=== PATIENT | male | born 1980 | race Caucasian/White ===

== ENCOUNTER → 2017-09-10 | Day surgery (SDC) | payer BC ==
[~2017-09-10] VITALS: Ht 176.5 cm; Wt 92.6 kg
[~2017-09-10] MED LIST: FERR27TA5; MULT-1027; PYRI1TAB30
[2017-09-10 08:22] VITALS: BP 133/80; PULSE 62; TEMP 36.7; O2SAT 94; Ht 176.5 cm; Wt 92.6 kg
[2017-09-10 11:49] VITALS: BP 122/80; PULSE 54; TEMP 36.8; O2SAT 99
--- NOTE | 2017-09-11 15:23 | OPERATIVE REPORT ---
DATE OF OPERATION: 09/10/2017 PROCEDURE: Hydrogen breath test for lactose intolerance. INDICATIONS: The patient is having gas and bloating. PROCEDURE: The patient was administered 25 grams of lactose. At baseline his hydrogen level was 5 with a CO2 of 3.3. Breath samples were done at 60 minute intervals up to 180 minutes. Sixty minute hydrogen level was 13 and he was slightly gassy at 120 minutes, his hydrogen level was 26 with same gas symptoms and final breath test at 180 minutes was 29 and was also experiencing gas symptoms. The significant elevation in hydrogen levels at least 20 points parts per million above baseline in association with symptoms is diagnostic of lactose intolerance. I attest to the content of the Intraoperative Record and any orders documented therein. Any exception s are noted below.
== END | disposition home or self-care (01) ==
LOC: C.MTU 08:14
PROVIDERS: ATTEND Internal Medicine
DX: R14.0 Abdominal distension (gaseous) (principal)